=== PATIENT | female | born 1985 | race Caucasian/White ===

== ENCOUNTER 2017-08-13 22:11 | Inpatient (IN) ==
--- NOTE | 2017-08-13 22:27 | Emergency Department Note ---
Disposition Clinical Impression: Suicidal ideation, Crack cocaine use Disposition: Still a Patient Time of Disposition: 22:27 Psych HPI - General Chief Complaint: ED Psychiatric Symptoms Stated Complaint: needs 1A Time Seen by Provider: 08/13/17 22:16 Source: patient, other Mode of arrival: ambulatory Limitations: no limitations Nursing Notes Reviewed: Yes Vital Signs Reviewed: Yes - History of Present Illness HPI Narrative: Patient has been smoking crack. History of opiate abuse. States she intended to overdose on her Seroquel and trazodone but did not. Denies hallucinations Pt complaint: suicidal ideation, feels depressed Onset (ago): day(s) Duration: constant History of similar episodes: Yes Improves with: none Worsens with: drug use Context: recent drug abuse Alleged intoxication: No Associated Psychiatric Symptoms: depression, suicidal ideation Associated symptoms: Reports: denies other symptoms Traumatic symptoms: denies traumatic injury Self harm or harm to others: admits thoughts of self harm, has plan - Related Data Allergies Allergy/AdvReac Type Severity Reaction Status Date / Time naproxen Allergy Hives Verified 08/13/17 22:15 Sulfa (Sulfonamide Allergy Hives Verified 08/13/17 22:15 Antibiotics) All systems ED: reviewed and negative except as stated. Constitutional: Reports: as per HPI Eyes: Reports: as per HPI ENT ED: Reports: as per HPI Cardiovascular: Reports: as per HPI Respiratory: Reports: as per HPI Gastrointestinal: Reports: as per HPI Genitourinary: Reports: as per HPI Musculoskeletal: Reports: as per HPI Integumentary: Reports: as per HPI Neurological: Reports: as per HPI Psychiatric: Reports: depression, suicidal thoughts Endocrine: Reports: as per HPI Hematological/Lymphatic: Reports: as per HPI Allergic/Immunologic: Reports: as per HPI Past Medical History - Past Medical History Source: patient Medical history: Reports: migraine Psychiatric history: Reports: anxiety, bipolar, depression - Social History Smoking Status: Current every day smoker Drug use: Reports: cocaine, IV Drug Use Physical Exam - General Limitations: no limitations General appearance: alert, anxious - Head Head exam: atraumatic - Eye Eye exam: Present: normal appearance - ENT ENT exam: normal exam - Neck Neck exam: Present: normal inspection - Chest Chest inspection: Present: normal inspection - Respiratory Respiratory exam: Present: normal lung sounds bilaterally - Cardiovascular Cardiovascular exam: Present: regular rate, normal rhythm, normal heart sounds - Rectal Exam Rectal exam: Present: deferred - Extremities Exam Extremities exam: Present: normal inspection - Neurological Exam Neurological exam: Present: alert, oriented X3, CN II-XII intact - Psychiatric Psychiatric exam: Present: normal affect, anxious - Skin Skin exam: Present: warm, dry, intact Course Course Narrative: Patient feels depressed and suicidal. Has been smoking crack. Will attempt to clear medically for behavioral eval Vital Signs Temperature 98.2 F 08/13/17 22:11 Pulse Rate 92 08/13/17 22:11 Respiratory Rate 20 08/13/17 22:11 Blood Pressure 115/67 08/13/17 22:11 O2 Sat by Pulse Oximetry 100 08/13/17 22:11 Temperature 98.2 F 08/13/17 22:11 Pulse Rate 92 08/13/17 22:11 Respiratory Rate 20 08/13/17 22:11 Blood Pressure 115/67 08/13/17 22:11 O2 Sat by Pulse Oximetry 100 08/13/17 22:11 Oxygen Delivery Oxygen Delivery Room Air Psychiatric Medical Clearance - Medical Clearance Checklist Medical History: No Social History Section defined Current Vitals: Last Vital Signs Temp 98.2 F 08/13/17 22:11 Pulse 92 08/13/17 22:11 Resp 20 08/13/17 22:11 BP 115/67 08/13/17 22:11 Pulse Ox 100 08/13/17 22:11 Statement of Medical Clearance: I have evaluated the patient, reviewed diagnostic information, and certify that the patient's medical condition is sufficiently stable that transfer to the psychiatric unit does not pose a significant risk of deterioration.
[2017-08-13 22:41] LABS: Clarity,Urine Slightly Hazy (Clear); Color,Urine Yellow (Yellow)
[2017-08-13 22:42] LABS: Bilirubin,Urine Small (Negative); Blood,Urine Large (Negative); Glucose,Urine (UA) Normal (Normal); Ketones,Urine Trace mg/dL (Negative); Protein,Urine 30 mg/dL (Neg-Trace); Specific Gravity,Urine 1.027 (1.010-1.025)
[2017-08-13 22:43] LABS: Leukocyte Esterase,Urine Small (Negative); Nitrite,Urine Negative (Negative); Urobilinogen,Urine Normal (Normal)
[2017-08-13 22:52] LABS: Amphetamine Screen,Urine Negative ng/mL (Cutoff=1000); Barbiturate Screen,Urine Negative ng/mL (Cutoff=200); Benzodiazepines Screen,Urine Negative ng/mL (Cutoff=200); Cannabinoid Screen,Urine Negative ng/mL (Cutoff = 50); Cocaine Screen,Urine Positive ng/mL (Cutoff= 300); Opiate Screen,Urine Negative ng/mL (Cutoff=300); Phencyclidine Screen,Urine Negative ng/mL (Cutoff=25)
[2017-08-13 22:52] LABS: Bacteria,Urine Moderate per hpf (None-Few); Mucus,Urine Few (Few); RBC,Urine 30-50 per hpf (0-3); Squamous Epithelial Cell,Urine Few per lpf (None-Few)
[2017-08-13 22:55] LABS: Basophils % 0.4 %; Eosinophils # 0.2 K/mcL (0.0-0.6); Hematocrit 42.8 % (35.3-44.9); Hemoglobin 14.6 g/dL (11.5-15.4); Immature Granulocytes % 0.2 % (0-4); Immature Platelets 5.2 % (1.1-6.1); Lymphocytes # 2.5 K/mcL (0.6-4.6); Lymphocytes % 22.8 %; Mean Corpuscular HGB Conc 34.1 g/dL (31.6-35.5); Mean Corpuscular Hemoglobin 28.9 pg (28.0-33.3); Mean Corpuscular Volume 84.8 fL (83.0-100.0); Mean Platelet Volume 10.5 fL (9.4-12.4); Monocytes # 0.8 K/mcL (0.0-1.3); Monocytes % 7.1 %; Neutrophils # 7.4 K/mcL (1.6-8.9); Platelet Count 209 K/mcL (140-400); Red Blood Count 5.05 M/mcL (3.82-4.97); Red Cell Distribution Width 13.2 % (11.5-14.5); Segmented Neutrophils % 67.5 %
[2017-08-13 23:06] LABS: Alanine Aminotransferase 103 Units/L (0-55); Albumin 3.7 g/dL (3.5-5.0); Albumin/Globulin Ratio 0.9 (1.1-2.2); Alkaline Phosphatase 88 Units/L (38-126); Aspartate Amino Transferase 70 Units/L (5-34); BUN/Creatinine Ratio 19 (6-26); Bilirubin,Direct 0.2 mg/dL (0.0-0.5); Bilirubin,Indirect 0.3 mg/dL (0.0-1.2); Bilirubin,Total 0.5 mg/dL (0.2-1.2); Blood Urea Nitrogen 14 mg/dL (7-20); Carbon Dioxide 21 mEq/L (19-29); Chloride 105 mEq/L (98-109); Globulin 4.3 g/dL (2.4-3.5); Glucose 134 mg/dL (70-99); Osmolality,Calculated 282 (280-300); Potassium 3.3 mEq/L (3.5-4.5); Sodium 135 mEq/L (136-145); eGFR For African Americans > 60 (> 60); eGFR For Non-African Americans > 60 (> 60)
[2017-08-13 23:07] LABS: Acetaminophen < 1.0 mcg/mL (10-30); Ethanol < 10 mg/dL (0-10); Salicylate < 5.0 mg/dL (15-30)
[2017-08-13 23:11] LABS: Platelet Estimate Normal (Normal)
[2017-08-13 23:12] LABS: Reactive Lymphocytes Present (Not Present)
--- NOTE | 2017-08-13 23:59 | Emergency Department Note ---
Disposition Clinical Impression: Suicidal ideation, Crack cocaine use Disposition: Admitted As Inpatient Condition: Good Forms: ED Satisfaction Letter Time of Disposition: 23:58 Psych HPI - General Chief Complaint: ED Psychiatric Symptoms Stated Complaint: needs 1A Time Seen by Provider: 08/13/17 22:16 Source: patient, other Mode of arrival: ambulatory - History of Present Illness Duration: constant Improves with: none Worsens with: drug use Associated symptoms: Reports: denies other symptoms - Related Data Allergies Allergy/AdvReac Type Severity Reaction Status Date / Time naproxen Allergy Hives Verified 08/13/17 22:15 Sulfa (Sulfonamide Allergy Hives Verified 08/13/17 22:15 Antibiotics) Constitutional: Reports: as per HPI Eyes: Reports: as per HPI ENT ED: Reports: as per HPI Cardiovascular: Reports: as per HPI Respiratory: Reports: as per HPI Gastrointestinal: Reports: as per HPI Genitourinary: Reports: as per HPI Musculoskeletal: Reports: as per HPI Integumentary: Reports: as per HPI Neurological: Reports: as per HPI Psychiatric: Reports: depression, suicidal thoughts Endocrine: Reports: as per HPI Hematological/Lymphatic: Reports: as per HPI Allergic/Immunologic: Reports: as per HPI Past Medical History - Past Medical History Medical history: Reports: migraine Psychiatric history: Reports: anxiety, bipolar, depression - Social History Smoking Status: Current every day smoker Drug use: Reports: cocaine, IV Drug Use Physical Exam - General Limitations: no limitations General appearance: alert, anxious Course - Reevaluation(s) Reevaluation #1: Patient will be admitted by the [facility]. Requesting Tylenol for a migraine. Time: 23:58 Vital Signs Temperature 98.2 F 08/13/17 22:11 Pulse Rate 92 08/13/17 22:11 Respiratory Rate 20 08/13/17 22:11 Blood Pressure 115/67 08/13/17 22:11 O2 Sat by Pulse Oximetry 100 08/13/17 22:11 Temperature 98.2 F 08/13/17 22:11 Pulse Rate 92 08/13/17 22:11 Respiratory Rate 20 08/13/17 22:11 Blood Pressure 115/67 08/13/17 22:11 O2 Sat by Pulse Oximetry 100 08/13/17 22:11 Oxygen Delivery Oxygen Delivery Room Air Psych - Lab Data Result diagrams: 08/13/17 22:44 08/13/17 22:44 Lab Results 08/13/17 08/13/17 08/13/17 Range/Units 22:20 22:27 22:27 WBC (4.3-11.1) K/mcL RBC (3.82-4.97) M/mcL Hgb (11.5-15.4) g/dL Hct (35.3-44.9) % MCV (83.0-100.0) fL MCH (28.0-33.3) pg MCHC (31.6-35.5) g/dL RDW (11.5-14.5) % Plt Count (140-400) K/mcL MPV (9.4-12.4) fL Immature Gran % (0-4) % Seg Neutrophils % % Lymphocytes % % Monocytes % % Eosinophils % % Basophils % % Neutrophils # (1.6-8.9) K/mcL Lymphocytes # (0.6-4.6) K/mcL Monocytes # (0.0-1.3) K/mcL Eosinophils # (0.0-0.6) K/mcL Basophils # (0.0-0.2) K/mcL Reactive Lymphocytes (Not Present) Platelet Estimate (Normal) Immature Plt Fraction (1.1-6.1) % Sodium (136-145) mEq/L Potassium (3.5-4.5) mEq/L Chloride (98-109) mEq/L Carbon Dioxide (19-29) mEq/L BUN (7-20) mg/dL Creatinine (0.57-1.11) mg/dL Est GFR ( Amer) (> 60) Est GFR (Non-Af Amer) (> 60) BUN/Creatinine Ratio (6-26) Glucose (70-99) mg/dL Calculated Osmolality (280-300) Calcium (8.6-10.8) mg/dL Total Bilirubin (0.2-1.2) mg/dL Direct Bilirubin (0.0-0.5) mg/dL Indirect Bilirubin (0.0-1.2) mg/dL AST (5-34) Units/L ALT (0-55) Units/L Alkaline Phosphatase (38-126) Units/L Serum Total Protein (6.0-8.3) g/dL Albumin (3.5-5.0) g/dL Globulin (2.4-3.5) g/dL Albumin/Globulin Ratio (1.1-2.2) Urine Color Yellow (Yellow) Urine Clarity Slightly Hazy (Clear) Urine pH 6.0 (5.0-8.0) pH Units Ur Specific [place] 1.027 H (1.010-1.025) Urine Protein 30 H (Neg-Trace) mg/dL Urine Glucose (UA) Normal (Normal) mg/dL Urine Ketones Trace H (Negative) mg/dL Urine Blood Large H (Negative) Urine Nitrite Negative (Negative) Urine Bilirubin Small H (Negative) Urine Urobilinogen Normal (Normal) mg/dL Ur Leukocyte Esterase Small H (Negative) Urine Microscopic RBC 30-50 H (0-3) per hpf Urine Microscopic WBC 3-5 H (0-3) per hpf Ur Squamous Epith Cells Few (None-Few) per lpf Urine Bacteria Moderate H (None-Few) per hpf Urine Mucus Few (Few) Urine Test Negative (Negative) Salicylates (15-30) mg/dL Urine Opiates Screen Negative (Vftdij=501) ng/mL Acetaminophen (10-30) mcg/mL Ur Barbiturates Screen Negative (Cnyvdg=340) ng/mL Ur Phencyclidine Scrn Negative (Cutoff=25) ng/mL Ur Amphetamines Screen Negative (Gkemsg=1760) ng/mL U Benzodiazepines Scrn Negative (Zdrmki=857) ng/mL Urine Cocaine Screen Positive H (Cutoff= 300) ng/mL U Marijuana (THC) Screen Negative (Cutoff = 50) ng/mL Ethyl Alcohol (0-10) mg/dL 08/13/17 08/13/17 Range/Units 22:44 22:44 WBC 11.0 (4.3-11.1) K/mcL RBC 5.05 H (3.82-4.97) M/mcL Hgb 14.6 (11.5-15.4) g/dL Hct 42.8 (35.3-44.9) % MCV 84.8 (83.0-100.0) fL MCH 28.9 (28.0-33.3) pg MCHC 34.1 (31.6-35.5) g/dL RDW 13.2 (11.5-14.5) % Plt Count 209 (140-400) K/mcL MPV 10.5 (9.4-12.4) fL Immature Gran % 0.2 (0-4) % Seg Neutrophils % 67.5 % Lymphocytes % 22.8 % Monocytes % 7.1 % Eosinophils % 2.0 % Basophils % 0.4 % Neutrophils # 7.4 (1.6-8.9) K/mcL Lymphocytes # 2.5 (0.6-4.6) K/mcL Monocytes # 0.8 (0.0-1.3) K/mcL Eosinophils # 0.2 (0.0-0.6) K/mcL Basophils # 0.0 (0.0-0.2) K/mcL Reactive Lymphocytes Present A (Not Present) Platelet Estimate Normal (Normal) Immature Plt Fraction 5.2 (1.1-6.1) % Sodium 135 L (136-145) mEq/L Potassium 3.3 L (3.5-4.5) mEq/L Chloride 105 (98-109) mEq/L Carbon Dioxide 21 (19-29) mEq/L BUN 14 (7-20) mg/dL Creatinine 0.74 (0.57-1.11) mg/dL Est GFR ( Amer) > 60 (> 60) Est GFR (Non-Af Amer) > 60 (> 60) BUN/Creatinine Ratio 19 (6-26) Glucose 134 H (70-99) mg/dL Calculated Osmolality 282 (280-300) Calcium 9.0 (8.6-10.8) mg/dL Total Bilirubin 0.5 (0.2-1.2) mg/dL Direct Bilirubin 0.2 (0.0-0.5) mg/dL Indirect Bilirubin 0.3 (0.0-1.2) mg/dL AST 70 H (5-34) Units/L ALT 103 H (0-55) Units/L Alkaline Phosphatase 88 (38-126) Units/L Serum Total Protein 8.0 (6.0-8.3) g/dL Albumin 3.7 (3.5-5.0) g/dL Globulin 4.3 H (2.4-3.5) g/dL Albumin/Globulin Ratio 0.9 L (1.1-2.2) Urine Color (Yellow) Urine Clarity (Clear) Urine pH (5.0-8.0) pH Units Ur Specific [place] (1.010-1.025) Urine Protein (Neg-Trace) mg/dL Urine Glucose (UA) (Normal) mg/dL Urine Ketones (Negative) mg/dL Urine Blood (Negative) Urine Nitrite (Negative) Urine Bilirubin (Negative) Urine Urobilinogen (Normal) mg/dL Ur Leukocyte Esterase (Negative) Urine Microscopic RBC (0-3) per hpf Urine Microscopic WBC (0-3) per hpf Ur Squamous Epith Cells (None-Few) per lpf Urine Bacteria (None-Few) per hpf Urine Mucus (Few) Urine Test (Negative) Salicylates < 5.0 L (15-30) mg/dL Urine Opiates Screen (Qwnsmg=381) ng/mL Acetaminophen < 1.0 L (10-30) mcg/mL Ur Barbiturates Screen (Weqrsb=296) ng/mL Ur Phencyclidine Scrn (Cutoff=25) ng/mL Ur Amphetamines Screen (Dzhyia=0514) ng/mL U Benzodiazepines Scrn (Waeoeo=710) ng/mL Urine Cocaine Screen (Cutoff= 300) ng/mL U Marijuana (THC) Screen (Cutoff = 50) ng/mL Ethyl Alcohol < 10 (0-10) mg/dL Psychiatric Medical Clearance - Medical Clearance Checklist Medical History: Suicidal ideation (Acute) Crack cocaine use (Acute) No Social History Section defined Current Vitals: Last Vital Signs Temp 98.2 F 08/13/17 22:11 Pulse 92 08/13/17 22:11 Resp 20 08/13/17 22:11 BP 115/67 08/13/17 22:11 Pulse Ox 100 08/13/17 22:11 Psychiatric Lab Panel: Drug Levels and Toxicity 08/13/17 08/13/17 22:20 22:44 Urine Opiates Screen Negative Acetaminophen < 1.0 L Ur Barbiturates Screen Negative Ur Phencyclidine Scrn Negative Ur Amphetamines Screen Negative U Benzodiazepines Scrn Negative Urine Cocaine Screen Positive H U Marijuana (THC) Screen Negative Ethyl Alcohol < 10 Abnormal Labs: Abnormal lab results RBC 5.05 M/mcL (3.82-4.97) H 08/13/17 22:44 Reactive Lymphocytes Present (Not Present) A 08/13/17 22:44 Sodium 135 mEq/L (136-145) L 08/13/17 22:44 Potassium 3.3 mEq/L (3.5-4.5) L 08/13/17 22:44 Glucose 134 mg/dL (70-99) H 08/13/17 22:44 AST 70 Units/L (5-34) H 08/13/17 22:44 ALT 103 Units/L (0-55) H 08/13/17 22:44 Globulin 4.3 g/dL (2.4-3.5) H 08/13/17 22:44 Albumin/Globulin Ratio 0.9 (1.1-2.2) L 08/13/17 22:44 Ur Specific [place] 1.027 (1.010-1.025) H 08/13/17 22:27 Urine Protein 30 mg/dL (Neg-Trace) H 08/13/17 22:27 Urine Ketones Trace mg/dL (Negative) H 08/13/17 22:27 Urine Blood Large (Negative) H 08/13/17 22:27 Urine Bilirubin Small (Negative) H 08/13/17 22:27 Ur Leukocyte Esterase Small (Negative) H 08/13/17 22:27 Urine Microscopic RBC 30-50 per hpf (0-3) H 08/13/17 22:27 Urine Microscopic WBC 3-5 per hpf (0-3) H 08/13/17 22:27 Urine Bacteria Moderate per hpf (None-Few) H 08/13/17 22:27 Salicylates < 5.0 mg/dL (15-30) L 08/13/17 22:44 Acetaminophen < 1.0 mcg/mL (10-30) L 08/13/17 22:44 Urine Cocaine Screen Positive ng/mL (Cutoff= 300) H 08/13/17 22:20 Statement of Medical Clearance: I have evaluated the patient, reviewed diagnostic information, and certify that the patient's medical condition is sufficiently stable that transfer to the psychiatric unit does not pose a significant risk of deterioration.
[2017-08-14] MEDS ORDERED: *HR* LORazepam 2 MG/ML VIAL IM PRN (00:22)
[2017-08-14] MEDS ORDERED: Acetaminophen 325 MG TABLET PO PRN (00:22)
[2017-08-14] MEDS ORDERED: Mag Hydrox/Al Hydrox/Simeth 30 ML UDC PO PRN (00:22)
[2017-08-14] MEDS ORDERED: Haloperidol Lactate 5 MG/ML VIAL IM PRN (00:22)
[2017-08-14] MEDS ORDERED: hydrOXYzine pamoate 25 MG CAPSULE PO PRN (00:22)
[2017-08-14] MEDS ORDERED: *HR* LORazepam 1 MG TABLET PO PRN (00:22)
[2017-08-14] MEDS ORDERED: traZODone 50 MG TABLET PO PRN (00:22)
[2017-08-14] MEDS ORDERED: MOM Conc 10 ML UD.LIQ PO PRN (00:22)
--- NOTE | 2017-08-14 08:46 | Psychiatry History & Physical ---
Date of Encounter: 08/14/17 Time of Encounter: 09:50 History of Present Illness Patient Stated Chief Complaint: "I want to ." Medicare Admission Attestation: For traditional Medicare patients the provided hospital inpatient services are reasonable and necessary and in the case of services not specified as inpatient -only under 42 CFR 419.22 (n), that they are appropriately provided as inpatient services in accordance 42 CFR 412.3. For Critical Access Hospital the patient may reasonably be expected to be discharged or transferred to a hospital within 96 hours after admission to the Critical Access Hospital. Admitted From: Emergency Dept Plans for Post Hospital Care: Home History of Present Illness: Ms. Bhardwaj is a 32 year old female with a history of opiate abuse, crack cocaine use, depression and mood swings who presented to the hospital after using crack cocaine and becoming very depressed because she started using again. Patient states her plan was to overdose on Seroquel and trazodone. Apparently a friend stopped her and decided to take her to the hospital. Patient reports that she still feels depressed and suicidal and does not think she would be able to keep herself safe if she went home. "If I start using again I am sure I will kill myself." Patient denies auditory or visual hallucinations. She does report significant mood swings and irritability. She states she has been on multiple psychiatric medications before but a lot of them while she was using so she is not sure if they worked or not. She does report a family history of substance abuse and bipolar disorder. Patient reports that she does not have anywhere to go over her sister's house. She does not get along with her sister's boyfriend which is another stressor for her. She also reports that there is a man of [place] who apparently messed with her kids and she is angry at him as well. She denies homicidal ideations at this time. Past Med Surg Social Fam HX - Past Medical History Medical history: migraine - Past Psychiatric History Psychiatric history: Reports: depression, previous psychiatric hospitalization, other (cocaine use). Denies: prior suicide attempt Past psychiatric history details: ON vivtrol. Uses cocaine daily. No outpatient psychiatrist. One inpatient admissions 5 years ago at [facility]. Family psychiatric history: Yes Family Psychiatric History Details: Father has bipolar and alcohol and substance abuse. Family History of Suicide: None - Past Surgical History Surgical History: VARSHA/BSO - Social History Smoking Status: Current every day smoker Smokeless Tobacco Status: No Alcohol use: none Drug use: cocaine, IV Drug Use Occupational status: unemployed Current living situation: Home - Family History Mother Name: Siena Bhardwaj Family Member Ethnicity: Non- Living Status: Still Living Medications & Allergies 3 Allergy/AdvReac Type Severity Reaction Status Date / Time naproxen Allergy Hives Verified 08/13/17 22:15 Sulfa (Sulfonamide Allergy Hives Verified 08/13/17 22:15 Antibiotics) sulfamethoxazole Allergy Hives Unverified 08/14/17 01:26 [From Bactrim] trimethoprim [From Bactrim] Allergy Hives Unverified 08/14/17 01:26 Review of Systems Constitutional: Denies: fever, chills, weakness, weight change Eyes: Denies: eye pain, vision change Ears, Nose, Throat: Denies: ear pain, throat pain, dental pain, hearing loss, congestion Cardiovascular: Denies: chest pain, palpitations, dyspnea on exertion Respiratory: Denies: cough, dyspnea, wheezes Gastrointestinal: Denies: abdominal pain, nausea, vomiting, diarrhea, constipation Genitourinary male: Denies: urgency, dysuria, frequency, genital lesions Genitourinary female: Denies: urgency, dysuria, frequency, abnormal menses, dyspareunia Musculoskeletal: Denies: joint swelling, joint pain Integumentary: Denies: rash, lesions, pruritus Neurological: Denies: headache, weakness, numbness, memory loss Psychiatric: Reports: depression, anxiety, abnormal sleep pattern, suicidal ideation, anhedonia, hopelessness, irritability. Denies: auditory hallucinations, visual hallucinations Endocrine: Denies: fatigue, heat or cold intolerance Hematologic/Lymphatic: Denies: easy bruising, lymphadenopathy Allergic/Immunologic: Denies: urticaria, itchy eyes Mental Status Exam Patient orientation: Yes Person, Yes Time, Yes Place Level of alertness: Alert Patient appearance: Unkempt Behavior: calm, cooperative Psychomotor activity: Normal Eye contact: Diverts Contact Mood description: Depressed Affect description: congruent with mood, tearful Speech pattern: Normal rhythm, Normal tone Speech volume: Normal Thought process: Intact Thought content: Yes Suicidal ideation Perceptual disturbances: No Auditory hallucinations, No Visual hallucinations Attention span: Capable of Focused Attention Memory description: Grossly Intact Patient reliability: Reliable Historian Intelligence estimate: Average Judgment: Poor Insight: Minimal Exam - HEENT Head exam IM: Present: atraumatic Eye exam IM: Present: EOMI - Neurological Neurological exam IM: Present: CN II-XII intact - Extremities Extremities exam IM: Present: full ROM - Skin Skin exam IM: Present: dry, warm Results - Vital Signs Vital signs: Temp Pulse Resp BP Pulse Ox 98.2 F 92 18 115/67 100 08/13/17 22:11 08/13/17 22:11 08/14/17 00:38 08/14/17 00:38 08/13/17 22:11 - Labs Labs: Laboratory Last Values WBC 11.0 K/mcL (4.3-11.1) 08/13/17 22:44 RBC 5.05 M/mcL (3.82-4.97) H 08/13/17 22:44 Hgb 14.6 g/dL (11.5-15.4) 08/13/17 22:44 Hct 42.8 % (35.3-44.9) 08/13/17 22:44 MCV 84.8 fL (83.0-100.0) 08/13/17 22:44 MCH 28.9 pg (28.0-33.3) 08/13/17 22:44 MCHC 34.1 g/dL (31.6-35.5) 08/13/17 22:44 RDW 13.2 % (11.5-14.5) 08/13/17 22:44 Plt Count 209 K/mcL (140-400) 08/13/17 22:44 MPV 10.5 fL (9.4-12.4) 08/13/17 22:44 Immature Gran % 0.2 % (0-4) 08/13/17 22:44 Seg Neutrophils % 67.5 % 08/13/17 22:44 Lymphocytes % 22.8 % 08/13/17 22:44 Monocytes % 7.1 % 08/13/17 22:44 Eosinophils % 2.0 % 08/13/17 22:44 Basophils % 0.4 % 08/13/17 22:44 Neutrophils # 7.4 K/mcL (1.6-8.9) 08/13/17 22:44 Lymphocytes # 2.5 K/mcL (0.6-4.6) 08/13/17 22:44 Monocytes # 0.8 K/mcL (0.0-1.3) 08/13/17 22:44 Eosinophils # 0.2 K/mcL (0.0-0.6) 08/13/17 22:44 Basophils # 0.0 K/mcL (0.0-0.2) 08/13/17 22:44 Reactive Lymphocytes Present (Not Present) A 08/13/17 22:44 Platelet Estimate Normal (Normal) 08/13/17 22:44 Immature Plt Fraction 5.2 % (1.1-6.1) 08/13/17 22:44 Sodium 135 mEq/L (136-145) L 08/13/17 22:44 Potassium 3.3 mEq/L (3.5-4.5) L 08/13/17 22:44 Chloride 105 mEq/L (98-109) 08/13/17 22:44 Carbon Dioxide 21 mEq/L (19-29) 08/13/17 22:44 BUN 14 mg/dL (7-20) 08/13/17 22:44 Creatinine 0.74 mg/dL (0.57-1.11) 08/13/17 22:44 Est GFR ( Amer) > 60 (> 60) 08/13/17 22:44 Est GFR (Non-Af Amer) > 60 (> 60) 08/13/17 22:44 BUN/Creatinine Ratio 19 (6-26) 08/13/17 22:44 Glucose 134 mg/dL (70-99) H 08/13/17 22:44 Calculated Osmolality 282 (280-300) 08/13/17 22:44 Calcium 9.0 mg/dL (8.6-10.8) 08/13/17 22:44 Total Bilirubin 0.5 mg/dL (0.2-1.2) 08/13/17 22:44 Direct Bilirubin 0.2 mg/dL (0.0-0.5) 08/13/17 22:44 Indirect Bilirubin 0.3 mg/dL (0.0-1.2) 08/13/17 22:44 AST 70 Units/L (5-34) H 08/13/17 22:44 ALT 103 Units/L (0-55) H 08/13/17 22:44 Alkaline Phosphatase 88 Units/L (38-126) 08/13/17:44 Serum Total Protein 8.0 g/dL (6.0-8.3) 08/13/17: Albumin 3.7 g/dL (3.5-5.0) 08/13/17: Globulin 4.3 g/dL (2.4-3.5) H 08/13/17: Albumin/Globulin Ratio 0.9 (1.1-2.2) L 08/13/17: Urine Color Yellow (Yellow) 08/13/17 22: Urine Clarity Slightly Hazy (Clear) 08/13/17 22: Urine pH 6.0 pH Units (5.0-8.0) 08/13/17: Ur Specific [place] 1.027 (1.010-1.025) H 08/13/17 22: Urine Protein 30 mg/dL (Neg-Trace) H 08/13/17 22: Urine Glucose (UA) Normal mg/dL (Normal) 08/13/17: Urine Ketones Trace mg/dL (Negative) H 08/13/17 22: Urine Blood Large (Negative) H 08/13/17 22: Urine Nitrite Negative (Negative) 08/13/17: Urine Bilirubin Small (Negative) H 08/13/17: Urine Urobilinogen Normal mg/dL (Normal) 08/13/17 22: Ur Leukocyte Esterase Small (Negative) H 08/13/17 22:27 Urine Microscopic RBC 30-50 per hpf (0-3) H 08/13/17 22:27 Urine Microscopic WBC 3-5 per hpf (0-3) H 08/13/17 22:27 Ur Squamous Epith Cells Few per lpf (None-Few) 08/13/17 22: Urine Bacteria Moderate per hpf (None-Few) H 08/13/17 22: Urine Mucus Few (Few) 08/13/17 22: Urine Test Negative (Negative) 08/13/17 22: Salicylates < 5.0 mg/dL (15-30) L 08/13/17 22:44 Urine Opiates Screen Negative ng/mL (Udgcat=985) 08/13/17 22:20 Acetaminophen < 1.0 mcg/mL (10-30) L 08/13/17 22:44 Ur Barbiturates Screen Negative ng/mL (Wbwltj=796) 08/13/17 22:20 Ur Phencyclidine Scrn Negative ng/mL (Cutoff=25) 08/13/17 22:20 Ur Amphetamines Screen Negative ng/mL (Qileda=8327) 08/13/17 22:20 U Benzodiazepines Scrn Negative ng/mL (Tzjrfb=336) 08/13/17 22:20 Urine Cocaine Screen Positive ng/mL (Cutoff= 300) H 08/13/17 22:20 U Marijuana (THC) Screen Negative ng/mL (Cutoff = 50) 08/13/17 22:20 Ethyl Alcohol < 10 mg/dL (0-10) 08/13/17 22:44 Assessment and Plan (1) Major depressive disorder Current visit: Yes Status: Acute Plan: Admit inpatient for safety and stabilization, Close observation, Suicide Precautions per unit protocol, Encourage participation in unit milieu, Group Therapy, Monitor sleep, Monitor appetite, Family/Supportive other meeting Additional Plan: Admits to 1 a for psychiatric stabilization. We will start Abilify 2 mg by mouth daily for depression symptoms. Continue trazodone. Hydroxyzine for anxiety as needed. Monitor for side effects. Encourage group attendance. Risks, benefits, side effects, alternatives discussed w/pt: Yes Patient agreeable to treatment: Yes Estimated Length of Stay (Days): 3 Qualifiers: Major depression recurrence: recurrent Active/Remission status: currently active Major depression episode severity: severe Psychotic features: without psychotic features Qualified Code(s): F33.2 - Major depressive disorder, recurrent severe without psychotic features (2) Crack cocaine use Current visit: Yes Status: Acute Plan: Admit inpatient for safety and stabilization, Close observation, Suicide Precautions per unit protocol, Encourage participation in unit milieu, Group Therapy, Monitor sleep, Monitor appetite Additional Plan: Discussed with patient the importance of discontinuing drug use and the negative effects of drugs on her mental health. Patient may be interested in rehabilitation and does not want to lose her job. Risks, benefits, side effects, alternatives discussed w/pt: Yes Patient agreeable to treatment: Yes Plans for Post Hospital Care: Home Estimated Length of Stay (Days): 3
[2017-08-14] MEDS: ARIPiprazole 2 MG TABLET PO SCH (11:21)
[2017-08-15] MEDS: ARIPiprazole 2 MG TABLET PO SCH (08:40)
[2017-08-15 09:54] VITALS: BP 93/57
--- NOTE | 2017-08-15 10:24 | Discharge Summary ---
Date of Encounter: 08/15/17 Time of Encounter: 09:22 Diagnosis - Discharge Diagnosis (1) Major depressive disorder Status: Acute Qualifiers: Major depression recurrence: recurrent Active/Remission status: currently active Major depression episode severity: severe Psychotic features: without psychotic features Qualified Code(s): F33.2 - Major depressive disorder, recurrent severe without psychotic features (2) Crack cocaine use Status: Acute Medications - Discharge Medications Prescriptions: ARIPiprazole [Abilify] 2 mg PO DAILY #30 tablet hydrOXYzine pamoate [HydrOXYzine Pamoate] 25 mg PO TID PRN #90 capsule PRN Reason: Anxiety traZODone [TraZODone] 50 mg PO HS PRN #30 tablet PRN Reason: Insomnia traZODone [TraZODone] 50 mg PO HS 08/14/17 [History] ARIPiprazole [Abilify] 2 mg PO DAILY #30 tablet 08/15/17 [Rx] hydrOXYzine pamoate [HydrOXYzine Pamoate] 25 mg PO TID PRN #90 capsule 08/15/17 [Rx] traZODone [TraZODone] 50 mg PO HS PRN #30 tablet 08/15/17 [Rx] 3 Allergy/AdvReac Type Severity Reaction Status Date / Time naproxen Allergy Hives Verified 08/13/17 22:15 Sulfa (Sulfonamide Allergy Hives Verified 08/13/17 22:15 Antibiotics) sulfamethoxazole Allergy Hives Unverified 08/14/17 01:26 [From Bactrim] trimethoprim [From Bactrim] Allergy Hives Unverified 08/14/17 01:26 Provider Date of admission: 08/14/17 00:11 Primary care physician: [place] Provider Discharging clinician: Demetrius Yepez Assessment and Plan - Patient/Caregiver Discharge Instructions Activity: resume usual activities as tolerated Diet: regular diet - Follow up Plan Follow up with: [facility] [Outside] - 08/19/17 9:30 am (The above appointment is with Marcos Bautista for Vivitrol assessment and treatment services.) [facility] [Outside] - 09/16/17 10:00 am (The above appointment is with Luna Vincent Daily, for outpatient psychiatric assessment and medication management services. Please arrive 30 minutes early to complete paperwork. Please bring your photo ID (bring proof of address if you do not have an ID) and medication list. The above appointment(s) reflects first availability. You may contact the office regularly to check for cancellations that may allow you to be seen sooner. ) [facility] [Outside] (Office is closed until 08/17/2017. Appointment will be obtained at that time.) Overall status at discharge: Stable Disposition: Home, Self-Care Hospital Course Hospital course: Ms. Bhardwaj is a 32 year old female who is referred for hospitalization for depression and suicidal ideation and crack cocaine use. After reviewing the symptom diagnoses and treatment planning splitting the risk-benefit side effects alternatives to treatment and consequences of no treatment and getting an informed consent from the patient patient was treated with Abilify 2 mg daily for her mood swings and depression along with Vistaril and trazodone for anxiety and insomnia. Patient was counseled extensively regarding her drug use and his psychological and physiological impact and was helped to identify triggers and develop a relapse prevention plan. Patient did well on therapeutic milieu started noticing improvement in her mood she was positive future oriented and hopeful. Her suicidal ideation and depressive symptoms subsided. She was able to verbalize a relapse prevention and safety plan. She is planning on staying at her mother on discharge. She does report a supportive family. Overall patient's discharge condition was stable. Time spent discussing smoking cessation with patient: 3 to 10 minutes Does patient wish to continue nicotine replacement upon disc: No - Time Spent with Patient Total time spent providing and/or coordinating discharge services: Quality - Multiple Antipsychotics Patient discharged on 2 or more antipsychotic medications: No Procedures - Procedures Procedures: Medication Management, Crisis Stabilization, Supportive Therapy, Group Therapy, Psychoeducational Therapy Mental Status Exam - Mental Status Exam Patient orientation: Yes Person, Yes Time, Yes Place Level of alertness: Alert Patient appearance: Appropriate, Well Groomed Behavior: calm, cooperative Psychomotor activity: Normal Eye contact: Maintains Eye Contact Mood description: Euthymic/stable Affect description: congruent with mood, full range Speech pattern: Normal rate, Normal rhythm, Normal tone Speech Volume: Normal Thought process: Linear, Goal Oriented Thought Content: No Suicidal ideation, No Homicidal ideation, No Overt delusions Perceptual Disturbances: No Auditory hallucinations, No Visual hallucinations Judgment: Limited Insight: Partial
== END 2017-08-15 12:00 | disposition home or self-care (01) | DRG 751 ==
LOC: EMEROO 22:11 → 1ANU 08-14 00:11 → SUATTDRO 08-14 00:11 → 1ANU 08-14 00:39
PROVIDERS: ADMIT Student in an Organized Health Care Education/Training Program; ATTEND Psychiatry & Neurology Psychiatry